=== PATIENT | female | born 1945 | race Caucasian/White ===

== ENCOUNTER 2018-09-10 07:43 | Inpatient (IN) ==
--- NOTE | 2018-09-08 12:24 | MH ---
cc: Chin Martinez MD DATE OF ADMISSION: 09/10/2018 ADMITTING DIAGNOSIS: Severe osteoarthritis of the right knee and morbid obesity. HISTORY OF PRESENT ILLNESS: The patient is a 73-year-old white female who has experienced right knee pain of at least 20 years' duration. She associated the onset of her symptoms when she sustained blunt trauma to her right knee secondary to a fall, but initially did not seek any evaluation or treatment and was able to experience some trend of improvement. Over the following years, her discomfort tended to wax and wane in nature, but within the past 5 or more years the patient was followed by her primary care physician who prescribed multiple medications, including meloxicam, tramadol and pain medication. Within the past 3 years, the patient underwent orthopedic evaluation and at that time was diagnosed as having [id number] arthritis about her right knee and was encouraged to consider operative intervention. She was treated with an intraarticular steroid injection that afforded her very limited pain relief. She declined surgery at that time, indicating her intent to continue with conservative management, but unfortunately becoming more incapacitated with the passage of time. She was continuing to require tramadol for pain management when she presented to the undersigned physician in 06/2018. At that time, the patient described considerable incapacitation with regard to all weightbearing activities for which she was having increasing difficulty conforming to her daily routine. Her x-ray studies revealed severe degenerative changes with [id number]-ko-[id number] apposition about the medial compartment, associated with a varus deformity of at least 15 degrees magnitude. Findings and treatment options were reviewed with the patient at that time. The pros and cons of continuing with conservative management versus operative intervention involving total knee arthroplasty were outlined. Emphasis was made regarding not only the fact that the decision to proceed with surgery would be left entirely to the patient's discretion, but she would not be viewed as being an ideal candidate for operative treatment given her weight factor. The patient indicated her full understanding in this regard, but felt that she had no alternatives to consider, given the degree of pain that she was experiencing and its associated limitations, as well as that she had not responded in any favorable manner with regard to all modes of conservative treatment completed to date. She expressed her desire to proceed with operative treatment, understanding all of the above, and in compliance with her wishes, she has been scheduled for admission at this time in order that the above be accomplished. Her past medical history, hospitalizations, and surgeries have included tonsillectomy, section, tubal ligation and colonoscopy. The patient was also hospitalized on at least one occasion for medical evaluation of dehydration. MEDICAL ILLNESSES: Include hypertension, hypothyroidism. CURRENT MEDICATIONS: 1. Cardia one daily. 2. Lisinopril taken on a p.r.n. basis. 3. Levothyroxine daily. 4. Tramadol twice daily. ALLERGIES: The patient describes a DRUG ALLERGY TO PENICILLIN, which has been associated with yeast infections. REVIEW OF SYSTEMS: She does wear glasses. Denies headaches, seizure or syncope. No sinus congestion or epistaxis. Auditory acuity intact. No tinnitus. No bleeding gums or dysphagia. Denies cough, shortness of breath, upper respiratory infection, pneumonia, or tuberculosis. No angina. She is medically managed for hypertension. Her appetite is good. Bowel movements are regular. No hepatitis, ulcers or hemorrhoids. She has been treated in the past for cholecystitis. No urinary tract infection, no kidney stones. History of a fracture of the right ring finger treated nonoperatively. No psychiatric illness. Remaining review of systems is unremarkable and noncontributory. FAMILY HISTORY: 51 years. is 74 years of age. He has had a history of stroke, but no apparent significant residual. One son and 1 daughter, both described as being in good health. Family history is otherwise positive for diabetes, lupus and breast cancer. SOCIAL HISTORY: The patient completed a high school education with 2 years of college thereafter. She has been employed as a realtor. She denies active use of tobacco and ethanol. PHYSICAL EXAMINATION: VITAL SIGNS: Height 5 feet 1 inch, weight 266 pounds. GENERAL: Alert, oriented, and responsive 73-year-old white female who sits quietly upon the examination table with no obvious distress. HEAD, EARS, EYES, NOSE AND THROAT: Pupils are equally round and reactive to light. Extraocular movements full. Sclerae are clear. External nares clear. External auditory canals clear. Dental intact. Mucous membranes pink and moist. Pharynx clear. NECK: Supple. Active range of motion without appreciable pain. Carotid pulse palpable bilaterally. Trachea midline. Thyroid without thyroid enlargement. LUNGS: Clear to auscultation and percussion. No CVA tenderness. No discomfort throughout the dorsolumbar spine. HEART: Regular rhythm. No murmur or gallop. ABDOMEN: Soft, obese, nontender. Bowel sounds present. PELVIC: Per primary care physician. EXTREMITIES: Right knee, there is a generalized fullness about the knee consistent with redundancy of soft tissue. Medial joint line tenderness without palpable deformity. Apprehension and compression sign negative. Limited mobility in the 100-degree range of flexion with pain elicited. No appreciable ligamentous laxity. Neetu test and drawer sign negative. Pivot shift and Iain sign positive for medial compartment pain. Straight leg raising unremarkable at 80 degrees. Antalgic gait. NEUROLOGIC: Cranial nerves 2-12 grossly intact. IMPRESSION: 1. Severe osteoarthritis of the right knee. 2. Morbid obesity. PLAN: Right total knee arthroplasty: The nature of the planned surgical procedure, the potential complications and risks associated, the expectations of surgery, and the consent form have been thoroughly reviewed with the patient prior to her admission to the hospital. Jenn has indicated her full understanding regarding all of the above and given consent to proceed with treatment as outlined. Medical evaluation and clearance for surgery completed preoperatively by her primary care physician, Dr. Batool Peraza. Cardiology clearance per Dr. Diaz. MD NASH Lee/johnathan , 11:53 AM , 12:08 PM
[2018-09-10] MEDS ORDERED: Chlorhexidine Gluconate 2% 1 Pack (2 Cloths) TOPICAL ONE (08:27)
[2018-09-10] MEDS ORDERED: Metoprolol Tartrate 25 MG Tablet PO ONE (08:27)
[2018-09-10] MEDS ORDERED: Tranexamic Acid Inj 1,000 MG in Sodium Chlor 0.9% Inj 100 ML IV.SIG SCH ×2 (09:00→12:00)
[2018-09-10] MEDS ORDERED: Sodium Chlor 0.9% Inj 500 ML IV.SIG SCH (09:00)
[2018-09-10] MEDS ORDERED: Sodium Chlor 0.9% Inj 50 ML, Ropivacaine 0.5% PF Inj 24.63 ML, Ketorolac Inj 30 MG, EPI... P-ARTICULR SCH ×5 (09:00)
[2018-09-10] MEDS ORDERED: Bupivacaine Liposomal PF 1.3% Inj 20 ML Vial ONE (09:41)
[2018-09-10] MEDS ORDERED: Lidocaine PF 1% Inj 5 ML Syringe OTHER ONE (10:21)
[2018-09-10] MEDS: Vancomycin Inj 1,000 MG in Sodium Chlor 0.9% Inj 250 ML IV.SIG SCH ×2 (10:45→22:30)
[2018-09-10] MEDS ORDERED: HYDROmorphone PF Inj 2 MG/ML Vial ONE (11:41)
[2018-09-10] MEDS ORDERED: fentaNYL Citrate Inj 100 MCG/2 ML Ampul ONE ×2 (13:20)
[2018-09-10] MEDS ORDERED: clonazePAM 0.5 MG Tablet PO PRN (13:21)
[2018-09-10] MEDS ORDERED: Tranexamic Acid Inj 1,000 MG in Sodium Chlor 0.9% Inj 100 ML IV.SIG ONE (13:22)
[2018-09-10] MEDS ORDERED: Bisacodyl 10 MG Supp RECTAL PRN (13:22)
[2018-09-10] MEDS ORDERED: Acetaminophen 325 MG Tablet PO PRN (13:22)
[2018-09-10] MEDS ORDERED: Naloxone Inj 0.4 MG/ML Vial IV.PUSH PRN (13:22)
[2018-09-10] MEDS ORDERED: Post-op Orders (for Pharmacy) OTHER STA (13:22)
[2018-09-10] MEDS ORDERED: Morphine Sulfate Inj 2 MG/ML Vial IV.PUSH PRN (13:22)
[2018-09-10] MEDS ORDERED: Aluminum/Magnesium/Simethacone Susp 30 ML UDC PO PRN (13:22)
[2018-09-10] MEDS ORDERED: Morphine Inj 30 MG/30 ML PCA.VIAL PCA ONE (13:29)
--- NOTE | 2018-09-10 13:30 | P.CON ---
History of Present Illness Service: Hospitalist Consult date: 09/10/18 Requesting Physician: Chin Martinez Reason for Consult: Medical management Primary Care Provider: Batool Peraza Chief Complaint: Osteoarthritis History of Present Illness: Ms. Almeida is a pleasant 73-year-old female with a long history of right knee pain as well as hypertension and hypothyroidism who underwent right total knee arthroplasty on 09/10/2018. She has had right knee pain for more than 20 years. However in the last 3-5 years despite conservative treatments her pain continues to worsen. An orthopedic evaluation showed butv-uj-[id number] arthritis and she was encouraged to consider surgical intervention. She has had medical treatments including muscle relaxer, pain medication as well as intra-articular injections. Hospitalist service was consulted for medical management. Past medical history: Hypertension, hypothyroidism, severe osteoarthritis of right knee Past surgical history: Tonsillectomy, , tubal ligation. Social history: Patient denies using tobacco or alcohol. Family history: No family history of Alzheimer's or Parkinson's. Review of Systems All other systems reviewed negative except as stated in HPI PMFSH - History History Provided By: Patient - Medical History Medical History: Medical History (Last Reviewed 09/10/18 @ 08:14 by Amy Caban RN) Anxiety Arthritis Cataract Hypertension Hypothyroidism Joint pain Tachycardia Trigger finger Wears glasses - Surgical History Surgical History: Surgical History (Last Reviewed 09/10/18 @ 08:14 by Amy Caban RN) History of History of tonsillectomy History of tubal ligation - Tobacco History Second Hand Smoke Exposure: No Smoking Status: Never smoker - Alcohol History How Often Do You Have a Drink Containing Alcohol: Monthly or less - Substance Use History Substance History: No History of Abuse - Travel History Recent Travel in the [place] Within the Last 8 Weeks: No Recent Travel Out of the Country Within the Last 8 Weeks: No Medications and Allergies Active Medications: Active Medications Acetaminophen (Tylenol) 650 mg PO Q6H PRN PRN Reason: FEVER > 102 F Hydrocodone Bitart/Acetaminophen (Windsor 5/325) 1 tab PO Q4H PRN PRN Reason: PAIN LESS THAN 5 ON SCALE Hydrocodone Bitart/Acetaminophen (Windsor 5/325) 2 tab PO Q6H PRN PRN Reason: PAIN SCALE 5 TO 10 Al Hydrox/Mg Hydrox/Simethicone (Mag-Al Plus Susp Liq) 30 ml PO Q6H PRN PRN Reason: INDIGESTION Al Hydroxide/Mg Hydroxide (Milk Of Magnesia Liq) 30 ml PO BID PRN PRN Reason: Mild Constipation Aspirin (Aspirin) 325 mg PO BID STEVO Bisacodyl (Dulcolax Supp) 10 mg RECTAL DAILY PRN PRN Reason: SEVERE CONSITIPATION Clonazepam (Klonopin) 0.5 mg PO TID PRN PRN Reason: Anxiety Sodium Chloride 50 ml/Ropivacaine 24.63 ml/Ketorolac Tromethamine 30 mg/ Epinephrine HCl 0.5 mg/Clonidine HCl 80 mcg 0 ml P-ARTICULR ONCE STEVO Stop: 09/10/18 15:00 Last Admin: 09/10/18 11:29 Dose: 76.93 bag Lactated Ringer's (Lr 1000 Ml Inj) 1,000 mls @ 30 mls/hr IV.SIG .Q24H STEVO Stop: 09/11/18 08:29 Last Admin: 09/10/18 08:30 Dose: 30 mls/hr Sodium Chloride (Ns Inj) 500 mls @ 30 mls/hr IV.SIG .Q10H [facility] Last Admin: 09/10/18 08:54 Dose: Not Given Tranexamic Acid 1,000 mg/ (Sodium Chloride) 110 mls @ 200 mls/hr IV.SIG ONCE STEVO Stop: 09/10/18 18:00 Vancomycin HCl 1,000 mg/ (Sodium Chloride) 250 mls @ 250 mls/hr IV.SIG VISITOR SERVICE ASSISTANT STEVO Stop: 09/13/18 08:33 Last Infusion: 09/10/18 11:30 Dose: Infused Tranexamic Acid 1,000 mg/ (Sodium Chloride) 110 mls @ 200 mls/hr IV.SIG ONCE STEVO Stop: 09/10/18 15:00 Last Infusion: 09/10/18 11:30 Dose: Infused Lactated Ringer's (Lr 1000 Ml Inj) 1,000 mls @ 80 mls/hr IV.CONT .[id number] [facility] Morphine Sulfate (Morphine Inj) 30 mg in 30 mls @ 0 mls/hr SCALE ATTENDANT UNSCH PRN PRN Reason: per SCALE ATTENDANT parameters Tranexamic Acid 1,000 mg/ (Sodium Chloride) 110 mls @ 200 mls/hr IV.SIG ONCE ONE Stop: 09/10/18 13:54 Vancomycin/Sodium Chloride (Vancomycin Inj) 1 gm in 200 mls @ 200 mls/hr IV.SIG Q12H [facility] Stop: 09/11/18 02:59 Lactulose (Lactulose Liq) 30 ml PO DAILY PRN PRN Reason: SEVERE CONSITIPATION Lisinopril (Prinivil) 5 mg PO DAILY PRN PRN Reason: Hypertension Miscellaneous Information ([facility] Nursing Information) 0 each OTHER ONCE ONE Stop: 09/10/18 13:23 Miscellaneous Information ([facility] Post-Op Orders (For Pharmacy)) 0 each OTHER STAT STA Stop: 09/10/18 13:23 Miscellaneous Information ([facility] Nursing Information) 0 each OTHER UNSCH PRN PRN Reason: SEE DOSE INSTRUCTIONS Morphine Sulfate (Morphine Inj) 2 mg IV.PUSH Q3H PRN PRN Reason: BREAKTHROUGH PAIN Naloxone HCl (Narcan Inj) 0.4 mg IV.PUSH PRN PRN PRN Reason: Resp rate < 10 Non-Formulary Medication (Diltiazem Hcl [Diltiazem Hcl]) 180 mg PO DAILY [facility] Non-Formulary Medication (Levothyroxine [Levothyroxine]) 88 mcg PO DAILY [facility] Ondansetron HCl (Zofran Inj) 4 mg IV.PUSH Q6H PRN PRN Reason: NAUSEA OR VOMITING Povidone Iodine (Betadine 7.5% Scrub) 1 applicatio TOPICAL ONCE [facility] Stop: 09/14/18 08:59 Senna/Docusate Sodium (Flower-Colace) 1 tab PO BID [facility] Sennosides (Senokot) 17.2 mg PO BID PRN PRN Reason: Moderate Constipation Sodium Chloride (Ns Flush) 2 ml IV.FLUSH BID [facility] Sodium Chloride (Ns Flush) 2 ml IV.FLUSH PRN PRN PRN Reason: FLUSH AFTER USING IV ACCESS Tramadol HCl (Ultram) 50 mg PO Q6H PRN PRN Reason: Pain Zolpidem Tartrate (Ambien) 5 mg PO HS PRN PRN Reason: INSOMNIA Allergies Allergy/AdvReac Type Severity Reaction Status Date / Time penicillin G AdvReac Severe caused a Verified 09/10/18 08:14 yeast infection Home Medications Medication Instructions Recorded Confirmed Type aspirin [Adult Low Dose Aspirin] 81 mg PO DAILY 09/01/18 09/10/18 History clonazepam 0.5 mg PO TID PRN 09/01/18 09/10/18 History diltiazem HCl 180 mg PO DAILY 09/01/18 09/10/18 History levothyroxine 88 mcg PO DAILY 09/01/18 09/10/18 History lisinopril 5 mg PO DAILY PRN 09/01/18 09/10/18 History meloxicam 15 mg PO DAILY 09/01/18 09/10/18 History tramadol 50 mg PO Q6H PRN 09/01/18 09/10/18 History Physical Exam Vital signs: Vital Signs 09/10/18 08:30 09/10/18 08:52 Temperature 98.4 F Pulse Rate 80 72 Respiratory Rate 20 Blood Pressure 163/74 H Pulse Oximetry 99 100 Intake & Output 09/09/18 09/10/18 09/10/18 18:59 06:59 18:59 Intake Total 1200 / 1200 Output Total 500 / 500 Balance 700 / 700 Weight 122.2 kg Intake: IV 360 / 360 Cyklokapron Inj 1,000 MG In NS 110 / 110 Inj 100 ML @ 200 mls/hr IV.SIG ONCE [facility] Rx#:[id number] Vancomycin Inj 1,000 MG In NS 250 / 250 Inj 250 ML @ 250 mls/hr IV.SIG VISITOR SERVICE ASSISTANT [facility] Rx#:[id number] Anesthesia Amount 840 / 840 Output: Estimated Blood Loss 500 / 500 Other: Weight On Admission 122.2 kg Narrative: GENERAL: This is a well-nourished, well-developed patient, in no apparent distress. SKIN: No rashes, ecchymoses or lesions. Warm and dry. HEAD: Atraumatic. Normocephalic. No temporal or scalp tenderness. EYES: Pupils equal round and reactive. No injection or drainage. ENT: Nose without bleeding, purulent drainage or septal hematoma. Airway patent. NECK: Trachea midline. No lymphadenopathy. Supple, nontender, no meningeal signs. CARDIOVASCULAR: Regular rate and rhythm without murmurs, gallops, or rubs. No JVD. RESPIRATORY: Clear to auscultation. Breath sounds equal bilaterally. No wheezes , rales, or rhonchi. GASTROINTESTINAL: Abdomen soft, non-tender, nondistended. No guarding. MUSCULOSKELETAL: Extremities without clubbing, cyanosis, or edema. Status post right total knee arthroplasty NEUROLOGICAL: Awake and alert. Cranial nerves II through XII intact. No focal neurological deficits. Normal speech. Assessment and Plan - Plan Ms. Almeida is a pleasant 73-year-old female with a history of hypertension, hypothyroidism and long history of osteoarthritis who underwent right total knee arthroplasty on 09/10/2018. Hospitalist service was consulted for medical management. Severe osteoarthritis of right knee -Windsor, morphine for pain management -Orthopedic surgery has initiated aspirin 325 mg p.o. twice daily for DVT prophylaxis. -Bowel regimen Hypertension Hypothyroidism History of tachycardia -Continue lisinopril 5 mg p.o. daily as needed -Continue levothyroxine 88 mcg p.o. daily. -Patient also takes diltiazem 180 mg daily for tachycardia. -Blood pressure currently is slightly elevated possibly due to pain. Full code. Aspirin 325 mg twice a day. Thank you for the consult. We will continue to follow this patient with you.
--- NOTE | 2018-09-10 13:30 | P.DCO ---
- Diagnosis (1) Degenerative joint disease of right knee Status: Acute - Physical Therapy Order: Evaluate and treat, Improve ambulation, Strength and gait training - Home Health Nursing Order: Wound care and dressing changes, Nursing assessment with vital signs - Home Health Aide Order: To assist in: Bathing and personal care, administrative dietitian and meal prep - Supervisor Seaming Order: To evaluate: Living conditions/environment, Support services Order: To provide: Long range planning, Community services - Case Management Consult Yes - Certification I have seen patient Jenn Almeida on 09/10/18. My clinical findings support the need for the requested home health care services because: Limited ability to care for self, High risk of falls I certify that my clinical findings support that this patient is homebound because: Post-op weakness, Unsteady gait/balance, Unsafe to leave home unassisted (1) Degenerative joint disease of right knee Qualifiers: Osteoarthritis type: primary Qualified Code(s): M17.11 - Unilateral primary osteoarthritis, right knee
[2018-09-10] MEDS: Morphine Inj 30 MG/30 ML PCA.VIAL PCA PRN ×3 (13:40→22:15)
--- NOTE | 2018-09-10 13:50 | MP ---
cc: Chin Martinez MD DATE OF OPERATION: 09/10/2018 PREOPERATIVE DIAGNOSES: 1. Severe osteoarthritis, right knee. 2. Morbid obesity. POSTOPERATIVE DIAGNOSES: 1. Severe osteoarthritis, right knee. 2. Morbid obesity. PROCEDURE PERFORMED: Right total knee arthroplasty. SURGEON: Chin Martinez MD ANESTHESIA: General endotracheal. INDICATIONS: This is a 73-year-old white female with right knee pain of 20 years' duration; onset secondary to a history of blunt trauma secondary to a fall without any initial evaluation being completed and the patient conformed to conservative management. Over the following years her discomfort tended to wax and wane in nature, but within the past 5 years, while being followed by her primary care physician. She was prescribed multiple medications including meloxicam, tramadol and pain medication. Within the past 3 years, orthopedic evaluation was completed and at that time, the patient was diagnosed as having xaxs-sf-hleh arthritis about her right knee and was encouraged to consider operative treatment. She was treated with intraarticular steroid injection for which she described very limited pain relief. She declined surgery at that time indicating her intent to continue with conservative management. Unfortunately, she became more incapacitated with the passage of time. Subsequently, utilizing tramadol for pain management. She was seen by the undersigned physician in June of this year and at that time, described considerable incapacitation regarding all weightbearing activities and having increasing difficulty conforming to her daily routine. Her x-ray studies revealed severe degenerative changes with jxos-is-dmdy apposition about the medial compartment, associated with a varus deformity of at least 15 degrees magnitude. Findings and treatment options were reviewed with the patient at that time. The pros and cons of continuing with conservative management versus operative intervention involving total knee arthroplasty were outlined. The emphasis was made; not only was the decision to proceed with surgery left entirely to the patient's discretion, but she was not considered to be an ideal candidate for operative treatment given her weight factor with a BMI greater than 50. The patient indicated her full understanding in this regard, but felt that she had no alternatives to consider given the degree of pain she was experiencing and associated limitations. She was ready to proceed in spite of being informed accordingly and in compliance with her wishes, she was scheduled for admission at this time. FORMAT: Following the induction of satisfactory general anesthesia by endotracheal intubation as completed per the Department of Anesthesia a tourniquet was established around the proximal portion of the right lower extremity. The extremity proper was isolated with a U-drape, thereafter being prepped with Betadine solution and draped into a sterile field in the routine manner. Prior to initiation of the actual procedure, the standard timeout protocol was completed. All parameters were appropriately addressed and confirmed by operating room personnel. The extremity being elevated, the tourniquet was inflated to 300 mmHg pressure. A sharp skin incision was initiated anteriorly and developed through underlying abundant adipose and soft tissue in a deepening fashion to expose the anterior capsule. A medial capsulotomy was completed and the patella subluxed in a lateral orientation. Examination of the joint space, revealed severe degenerative changes; not only involving the medial compartment, but extending into the lateral compartment as well as the patellofemoral articulation. The articular surface of the patella was resected with power saw. The 3-hole guide was utilized for establishing post-holes. Medial and lateral meniscus structures as well as remnant of the anterior cruciate ligament were sharply excised. A centering hole was placed in the distal aspect of the femur, allowing positioning of the intramedullary guide. The distal femoral cutting jig was attached and the distal femur resected. AP measurement noted 62.5 mm sizing to be appropriate. The matching cutting block was positioned. Anterior, posterior and chamfer cuts were completed. The tibial plateau was subluxed in an anterior orientation allowing positioning of the extramedullary guide. The tibial plateau was resected and measured with 71 mm sizing determined to be satisfactory. A trial reduction followed utilizing a 62.5 mm anatomic femoral component, a 71 mm tibial base with both 10 mm and 12 mm bearing inserts trialed. The 12 mm thickness was determined to be the more favorable fit. The knee was readily brought to full extension. There was no laxity with varus and valgus stress at both 0 and 90 degrees flexed posture. Orientation was confirmed as being satisfactory with measurement of the pelvic guide through the mechanical access of the knee. A trial reduction followed utilizing a 28 mm standard patellar button. Once again good tracking demonstrated with no tendency towards subluxation. All trial components being removed, the remaining portion of the proximal tibia was prepared for insertion of the permanent component. The joint space was thoroughly lavaged with pulsating antibiotic solution, hemostasis maintained by electrocautery. An autogenous bone plug was inserted into the distal femoral guide hole and thereafter a preparation of the Biomet bone cement was inserted in knee components in a sequential fashion, which included a 71 mm fixed cruciate tibial plate with a 12 mm Vanguard tibial bearing insert and was secured with locking lo. The 62.5 mm Vanguard femoral component was firmly seated onto the distal femur, excess cement being removed. The knee was brought to full extension and thereafter, the 28 mm standard 3 post-patellar button was attached and maintained in place with patellar clamp while cement hardening was completed. Final range of motion assessment noted good tracking and stability of the knee. Irrigation repeated with hemostasis maintained. SureTrans drain tubes were inserted through superior stab wounds. The capsule was repaired with 0-Vicryl suture. The remaining portion of the wound was closed in layers in the routine manner, skin margins being reapproximated with a running subcuticular 3-0 Vicryl suture. Steri-Strips and Xeroform gauze applied, a dry sterile dressing thereafter. Tourniquet deflated after 51 minutes of tourniquet time. The patient was transferred to hospital bed and returned to the recovery room in satisfactory condition, having tolerated her operative procedure well. Estimated blood loss was approximately 500 mL as determined per anesthesia. All implants were of the Biomet. MD NASH Lee/raven , 01:14 PM , 01:27 PM
[2018-09-10] MEDS ORDERED: Vancomycin Inj 1 GM/200 ML PIGGYBACK IV.SIG SCH (14:00)
--- NOTE | 2018-09-10 14:44 | XR ---
EXAM DATE: 09/10/2018 12:00 AM EDT AGE/SEX: 73 years / Female INDICATIONS: Central Line Placement. CLINICAL DATA: This is the patient's initial encounter. Patient reports that signs and symptoms have been present for 1 day and indicates a pain score of 0/10. MEDICAL/SURGICAL HISTORY: None. None. COMPARISON: [facility] [place] 2V PA&LAT, 09/01/2018. . FINDINGS: Left subclavian central line with tip in the proximal SVC. No significant pneumothorax. No new focal pleural or parenchymal opacities. The cardiomediastinal contours are unremarkable. Osseous structure s are intact. CONCLUSION: 1. Left subclavian central line in the proximal SVC without pneumothorax. Electronically signed by: Ck Ramirez MD 09/10/2018 2:43 PM EDT
--- NOTE | 2018-09-10 14:46 | XR ---
EXAM DATE: 09/10/2018 1:19 PM EDT AGE/SEX: 73 years / Female INDICATIONS: Post-Op Right Knee Surgery. CLINICAL DATA: This is the patient's initial encounter. Patient reports that signs and symptoms have been present for 1 day and indicates a pain score of 0/10. MEDICAL/SURGICAL HISTORY: None. None. COMPARISON: TLI, XR KNEE COMPLETE, RIGHT, 07/24/2018. . FINDINGS: Interval right knee arthroplasty. Arthroplasty components are in anatomic alignment without acute bon y fracture. Immediate postsurgical soft tissue changes with surgical drain in place. CONCLUSION: 1. Right knee arthroplasty in anatomic alignment without acute fracture. Electronically signed by: Ck Ramirez MD 09/10/2018 2:45 PM EDT
[2018-09-10] MEDS ORDERED: Lisinopril 5 MG Tablet PO PRN (18:30)
[2018-09-10] MEDS ORDERED: Zolpidem Tartrate 5 MG Tablet PO PRN (21:00)
[2018-09-10] MEDS: Senna/Docusate Sodium 8.6/50 MG Tablet PO SCH (22:30)
[2018-09-10] MEDS: Aspirin 325 MG Tablet PO SCH (22:30)
[2018-09-11] MEDS: Levothyroxine 88 MCG Tablet PO SCH (05:43)
[2018-09-11] MEDS: Morphine Inj 30 MG/30 ML PCA.VIAL PCA PRN ×2 (05:44→11:10)
--- NOTE | 2018-09-11 06:29 | P.DCO ---
- Diagnosis (1) Degenerative joint disease of knee, left Status: Acute - Physical Therapy Order: Evaluate and treat, Improve ambulation, Strength and gait training - Home Health Nursing Order: Wound care and dressing changes, Nursing assessment with vital signs - Home Health Aide Order: To assist in: Bathing and personal care, technology specialist and meal prep - Ferry Engineer Order: To evaluate: Living conditions/environment, Support services Order: To provide: Long range planning, Community services - Case Management Consult Yes - Certification I have seen patient Jenn Almeida on 09/11/18. My clinical findings support the need for the requested home health care services because: Limited ability to care for self, High risk of falls I certify that my clinical findings support that this patient is homebound because: Post-op weakness, Unsteady gait/balance, Unsafe to leave home unassisted (1) Degenerative joint disease of knee, left Qualifiers: Osteoarthritis type: primary Qualified Code(s): M17.12 - Unilateral primary osteoarthritis, left knee
[2018-09-11 07:44] LABS: Hematocrit 29.9 % (35.0-46.0); Hemoglobin 9.8 gm/dL (11.6-15.3)
[2018-09-11] MEDS: Aspirin 325 MG Tablet PO SCH ×2 (09:24→20:53)
[2018-09-11] MEDS: dilTIAZem CD 180 MG Capsule PO SCH (09:24)
[2018-09-11] MEDS: Senna/Docusate Sodium 8.6/50 MG Tablet PO SCH ×2 (09:25→20:54)
--- NOTE | 2018-09-11 09:53 | P.PN ---
Subjective Interval history: Follow-up for severe osteoarthritis of right knee. Patient is a status post right total knee arthroplasty on 09/10/2018. Patient is currently doing well. No acute concerns. Working with physical therapy. Physical Exam Vital signs: Vital Signs 09/10/18 13:12 09/10/18 13:15 09/10/18 13:30 Temperature 97.9 F Pulse Rate 97 H 86 79 Respiratory Rate 19 14 14 Blood Pressure 144/63 H 142/64 H 119/57 L Pulse Oximetry 97 94 L 94 L 09/10/18 13:45 09/10/18 14:00 09/10/18 14:15 Temperature Pulse Rate 71 80 75 Respiratory Rate 22 22 14 Blood Pressure 115/55 L 158/67 H 125/61 Pulse Oximetry 98 95 100 09/10/18 15:00 09/10/18 16:00 09/10/18 18:26 Temperature 98 F Pulse Rate 70 79 Respiratory Rate 14 18 18 Blood Pressure 110/54 L 105/60 Pulse Oximetry 95 95 09/10/18 20:00 09/10/18 22:45 09/11/18 00:00 Temperature 98.3 F 98.2 F Pulse Rate 68 83 Respiratory Rate 18 18 18 Blood Pressure 131/60 115/58 L Pulse Oximetry 99 100 09/11/18 00:31 09/11/18 04:00 09/11/18 05:04 Temperature 98.6 F Pulse Rate 81 Respiratory Rate 18 18 18 Blood Pressure 114/55 L Pulse Oximetry 99 09/11/18 06:14 09/11/18 08:00 Temperature 98.7 F Pulse Rate 83 Respiratory Rate 18 18 Blood Pressure 130/63 Pulse Oximetry 96 Intake & Output 09/10/18 09/11/18 09/11/18 18:59 06:59 18:59 Intake Total 1954 / 1954 1356 / 1356 Output Total 560 / 560 110 / 110 Balance 1394 / 1394 1246 / 1246 Weight 122.2 kg 138.7 kg Intake: IV 604 / 604 1116 / 1116 LR 1000 mL Inj 1,000 ML @ 80 134 / 134 866 / 866 mls/hr IV.CONT .[id number] [facility] Rx# :[id number] Cyklokapron Inj 1,000 MG In NS 220 / 220 Inj 100 ML @ 200 mls/hr IV.SIG ONCE [facility] Rx#:[id number] Vancomycin Inj 1,000 MG In NS 250 / 250 250 / 250 Inj 250 ML @ 250 mls/hr IV.SIG Q12H [facility] Rx#:[id number] Oral 510 / 510 240 / 240 Anesthesia Amount 840 / 840 Output: Urine 0 / 0 Estimated Blood Loss 500 / 500 Wound Drainage 60 / 60 110 / 110 # 1 Right Knee 60 / 60 110 / 110 Other: # Voids 0 1 Date of Last Bowel Movement 09/09/18 09/09/18 # Bowel Movements 0 Weight On Admission 122.2 kg Narrative: GENERAL: This is a well-nourished, well-developed patient, in no apparent distress. SKIN: No rashes, ecchymoses or lesions. Warm and dry. HEAD: Atraumatic. Normocephalic. No temporal or scalp tenderness. EYES: Pupils equal round and reactive. No injection or drainage. ENT: Nose without bleeding, purulent drainage or septal hematoma. Airway patent. NECK: Trachea midline. No lymphadenopathy. Supple, nontender, no meningeal signs. CARDIOVASCULAR: Regular rate and rhythm without murmurs, gallops, or rubs. No JVD. RESPIRATORY: Clear to auscultation. Breath sounds equal bilaterally. No wheezes , rales, or rhonchi. GASTROINTESTINAL: Abdomen soft, non-tender, nondistended. No guarding. MUSCULOSKELETAL: Extremities without clubbing, cyanosis, or edema. Status post right total knee arthroplasty NEUROLOGICAL: Awake and alert. Cranial nerves II through XII intact. No focal neurological deficits. Normal speech. Results - Labs CBC & Chem 7: 09/11/18 06:29 Laboratory Results - last 24 hr 09/10/18 09/10/18 09/11/18 08:30 11:39 06:29 Hgb 9.8 L Hct 29.9 L Hematology Comments Blood Type O Positive Blood Type Recheck Required Antibody Screen Positive H Prewarmed Antibody Srcn Negative Antibody Identification Strong Non-Specific Cold Agg Direct Antiglob Test Strongly positive H Crossmatch Prewarmed See Detail - Imaging Impressions Chest X-Ray 09/10/18 00:00 CONCLUSION: 1. Left subclavian central line in the proximal SVC without pneumothorax. Knee X-Ray 09/10/18 13:19 CONCLUSION: 1. Right knee arthroplasty in anatomic alignment without acute fracture. Assessment and Plan - Plan Ms. Almeida is a pleasant 73-year-old female with a history of hypertension, hypothyroidism and long history of osteoarthritis who underwent right total knee arthroplasty on 09/10/2018. Hospitalist service was consulted for medical management. Severe osteoarthritis of right knee -Reading, morphine for pain management -Orthopedic surgery has initiated aspirin 325 mg p.o. twice daily for DVT prophylaxis. -Bowel regimen Hypertension Hypothyroidism History of tachycardia -Continue lisinopril 5 mg p.o. daily as needed -Continue levothyroxine 88 mcg p.o. daily. -Patient also takes diltiazem 180 mg daily for tachycardia. -Currently normotensive. Insomnia -zolpidem 5 mg p.o. nightly as needed. Full code. Aspirin 325 mg twice a day.
[2018-09-11] MEDS: Vancomycin Inj 1,000 MG in Sodium Chlor 0.9% Inj 250 ML IV.SIG SCH ×2 (10:15→10:44)
[2018-09-12] MEDS: Levothyroxine 88 MCG Tablet PO SCH (05:40)
[2018-09-12 08:04] VITALS: RESP 17
[2018-09-12] MEDS: Aspirin 325 MG Tablet PO SCH (09:24)
[2018-09-12] MEDS: dilTIAZem CD 180 MG Capsule PO SCH (09:24)
[2018-09-12] MEDS: Senna/Docusate Sodium 8.6/50 MG Tablet PO SCH (09:24)
[2018-09-12 12:00] VITALS: BP 145/62; PULSE 90; TEMP 97.2; O2SAT 100
--- NOTE | 2018-09-12 12:56 | MD ---
cc: Chin Martinez MD, Dr. DATE OF DISCHARGE: ADMITTING DIAGNOSES: 1. Severe osteoarthritis of the right knee. 2. Morbid obesity. DISCHARGE DIAGNOSES: 1. Severe osteoarthritis of the right knee. 2. Morbid obesity. HISTORY: A 73-year-old white female with a history of right knee pain dating back at least 20 years with the onset of her symptoms having occurred when she sustained blunt trauma to her knee secondary to a fall, but initially did not seek any evaluation or treatment and thought there was some trend of improvement. Over the following years her discomfort tended to wax and wane in nature, but during the past 5 years, the patient became more symptomatic at which time she was being followed by her primary care physician who prescribed multiple medications including meloxicam, tramadol and pain medication. Within the past 3 years the patient underwent orthopedic evaluation and at that time was diagnosed as having upgo-da-hmna arthritis about her right knee for which she was encouraged to consider operative intervention. She was treated with an intraarticular steroid injection that afforded her very limited relief. She declined surgery at that time indicating her intent to continue with conservative management, but unfortunately became more incapacitated with the passage of time. She continued to require tramadol for pain management when presented to the undersigned physician in June of this year. She described considerable incapacitation with regard to all weightbearing activities. She was having increasing difficulty conforming to her daily routine. Her x-ray studies revealed severe degenerative changes with [id number] apposition about the medial compartment, associated with a varus deformity of at least 15 degrees magnitude. Findings and treatment options were reviewed. The pros and cons of continuing with conservative management versus operative intervention that would involve total knee arthroplasty were outlined in detail. Emphasis was made regarding the fact that the decision to proceed with surgery would be left entirely to the patient's discretion. Concurrently, she would be viewed as not being an ideal candidate for operative treatment given her weight factor with associated morbid obesity. The patient indicated her full understanding in this regard, but felt that she had no alternative but to consider surgery given the degree of pain she was experiencing and the associated limitations. She has not responded favorably to conservative management and was accepting of all risk factors associated. She expressed her desire to proceed accordingly and in compliance with her wishes, she was scheduled for admission at this time in order that the above be accomplished. PHYSICAL EXAMINATION: MUSCULOSKELETAL: Physical examination at the time of admission revealed generalized fullness about the right knee that was consistent with redundancy of soft tissue. There was medial joint line tenderness without palpable deformity. Apprehension and compression sign were negative. Limited mobility in the 100 degree range of flexion with pain associated. No appreciable ligamentous laxity. Neetu test and drawer sign negative. Pivot shift and Iain sign positive for medial compartment pain. Straight leg raising unremarkable at 80 degrees; antalgic gait. HOSPITAL COURSE: Prior to admission to the hospital, the patient had undergone medical evaluation and clearance for surgery as completed by her primary care physician, Dr. Batool Peraza. Cardiology clearance was completed per Dr. Seymour. The patient was taken to the operating room on 10 September 2018 and on that date underwent a right total knee arthroplasty completed in an uncomplicated manner. The patient was noted to have tolerated her operative procedure well. Her postoperative course stable thereafter. Hemoglobin and hematocrit assessment on the first postoperative day was 9.8 and 29.9 respectively. The patient was progressively mobilized under the guidance of physical therapy being permitted weightbearing to tolerance about the right lower extremity. Followup examination of her surgical wound noted to be intact, healing favorably with no evidence of infection. Medical followup per the hospitalist service. DVT prophylaxis initiated. Drapery Counselor consulted to assist with discharge planning. The patient had indicated her desire to be discharged home and continue her rehabilitation on an outpatient basis. Plans were finalized in this regard and pending medical clearance, she was scheduled for discharge on the second postoperative day, at which time she was noted to be making favorable progress with regard to initial rehabilitation program. She was scheduled to be seen in office followup in approximately 4 weeks. HER CONDITION AT THE TIME OF DISCHARGE: Stable. PROGNOSIS: Favorable. DISCHARGE MEDICATIONS: Included hydrocodone 5/325, #30. The patient was also instructed to take aspirin 325 mg 1 tab twice daily for 3 weeks as continued DVT prophylaxis. MD NASH Lee/raven , 06:21 AM , 06:29 AM
== END 2018-09-12 14:02 | disposition home health service (06) ==
LOC: HSDI 07:43 → N06 16:48
PROVIDERS: ADMIT Orthopaedic Surgery; ATTEND Orthopaedic Surgery
DX: M21.161 Varus deformity, not elsewhere classified, right knee; E66.01 Morbid (severe) obesity due to excess calories; Z68.43 Body mass index [BMI] 50.0-59.9, adult; M17.11 Unilateral primary osteoarthritis, right knee; G47.00 Insomnia, unspecified; Z79.82 Long term (current) use of aspirin; I10 Essential (primary) hypertension; E03.9 Hypothyroidism, unspecified